=== PATIENT | male | born 1955 | race Caucasian/White ===

== ENCOUNTER → 2017-10-27 16:33 | Outpatient (CLI) | payer OTHER, SELFPAY ==
--- NOTE | 2017-10-27 | DI.RAD.S_ITS ---
PROCEDURE: XR LUMBAR SPINE 2-3V INDICATIONS: BACK PAIN TECHNIQUE: 3 views of the lumbar spine were acquired. COMPARISON: [facility], , CHEST 2 VIEW, 06/22/2007, 16:56. FINDINGS: Bones: 5 [id number] vertebrae are present. There is levoconvex scoliosis of the lumbar spine with apex at L3. There is multilevel trace retrolisthesis throughout the lumbar spine most severe at L1 on L2. Moderate to severe disc space narrowing is present throughout the lumbar spine most severe at L1-2 and L2-3. Prominent foraminal narrowing is present throughout the lumbar spine most severe at L1-L2, L3-L4, L4-L5 L5-S1. Multilevel anterior osteophytes are also present. Chronic appearing wedge deformity is present at T11. No vertebral body compression fractures. No suspicious bony lesions. Soft tissues: Overlying bowel gas pattern is normal. No suspicious soft tissue calcifications. IMPRESSION: Multilevel degenerative changes as above. Dictated by: Kelli Plata M.D. on 10/28/2017 at 14:14 Approved by: Kelli Plata M.D. on 10/28/2017 at 14:16
--- NOTE | 2017-10-27 | DI.RAD.S_ITS ---
PROCEDURE: XR KNEE RT 3V INDICATIONS: KNEE PAIN TECHNIQUE: 3 views of the knee were acquired. COMPARISON: [facility], CR, XR KNEE LT 3V, 10/27/2017, 16:26. FINDINGS: Bones: No fractures or dislocations. No suspicious bony lesions. There is mild medial patellofemoral compartment narrowing. Periarticular and peripatellar osteophytes are present. Soft tissues: Moderate joint effusion. No suspicious soft tissue calcifications. IMPRESSION: Moderate effusion with degenerative changes as above. Dictated by: Kelli Plata M.D. on 10/28/2017 at 14:13 Approved by: Kelli Plata M.D. on 10/28/2017 at 14:14
--- NOTE | 2017-10-27 | DI.RAD.S_ITS ---
PROCEDURE: XR KNEE LT 3V INDICATIONS: KNEE PAIN TECHNIQUE: 3 views of the knee were acquired. COMPARISON: None. FINDINGS: Bones: No fractures or dislocations. No suspicious bony lesions. Mild medial and patellofemoral compartment narrowing. Minimal periarticular and peripatellar osteophytes are present. Minimal patellar subluxation is present. Soft tissues: Moderate joint effusion. No suspicious soft tissue calcifications. IMPRESSION: Moderate effusion with degenerative changes as above. Dictated by: Kelli Plata M.D. on 10/28/2017 at 13:49 Approved by: Kelli Plata M.D. on 10/28/2017 at 14:13
== END ==
PROVIDERS: PCP Internal Medicine; Visit Provider Physician Assistant
DX: M17.0 Bilateral primary osteoarthritis of knee (principal); M51.37 Other intervertebral disc degeneration, lumbosacral region; M51.36 Other intervertebral disc degeneration, lumbar region; M25.462 Effusion, left knee; M25.461 Effusion, right knee; M25.562 Pain in left knee; M25.561 Pain in right knee; M54.5 Low back pain
CPT/HCPCS: 72100; 73562

== ENCOUNTER → 2018-02-28 17:20 | Outpatient (CLI) | payer OTHER, SELFPAY ==
--- NOTE | 2018-02-28 17:22 | DI.MRI.S_ITS ---
PROCEDURE: MR LUMBAR SPINE WO CON INDICATIONS: LOW BACK PAIN TECHNIQUE: Noncontrast sagittal T1 spin echo and T2 fast echo, sagittal STIR, axial T1 and T2 fast spin echo through the lumbar spine. In cases with scoliosis, additional coronal T2 fast spin echo may be performed. COMPARISON: None. FINDINGS: Image quality: Excellent. Alignment and Curvature: There is mild levoscoliosis centered at L3-4 level. Minimal retrolisthesis are noted at L1 to an L2-3 levels. Minimal anterolisthesis at L4-5 level is also seen. Bone Marrow: Marrow is of normal overall signal. No acute vertebral body compression fractures. Spinal Cord: Conus medullaris terminates at the T12-L1 level. Visualized cord demonstrates normal signal and size. Paraspinous Soft Tissues: No paravertebral masses. L1-L2: There is diffuse disc bulge and bilateral facet arthrosis with mild to moderate central canal stenosis and mild bilateral neuroforaminal narrowing. L2-L3: Diffuse disc bulge, bilateral facet arthrosis and hypertrophy of ligamentum flavum is seen with moderate central canal stenosis and bilateral neural foramina narrowing. L3-L4: Broad-based disc bulge and bilateral facet arthrosis is seen with hypertrophy of ligamenta flava. Moderate central canal stenosis and right worse than left bilateral neuroforaminal narrowing is seen. Bulging disc likely contacting exiting right L3 nerve root. L4-L5: Broad-based disc bulge and bilateral facet arthrosis with hypertrophy of ligamentum flavum is seen causing severe central canal stenosis and right worse than left bilateral neural foramina narrowing. Bulging disc likely contacting right L4 and L5 nerve roots and left L5 nerve root. L5-S1: Diffuse disc bulge and bilateral facet arthrosis is seen with mild central canal stenosis and bilateral neural foramina narrowing. Bulging disc likely contacting bilateral exiting L5 nerve roots. IMPRESSION: 1. Degenerative disc bulge and bilateral facet arthrosis throughout lumbar spine causing moderate to severe central canal stenosis and bilateral neural foramina narrowing most prominent at L4-5 level as above. 2. Mild degenerative spondylolisthesis at L1-2, L2-3 and L4-5 levels. Mild levoscoliosis centered at L3-4 level. No acute compression fracture. No marrow edema. Dictated by: Richy Tirado M.D. on 03/01/2018 at 8:35 Approved by: Richy Tirado M.D. on 03/01/2018 at 8:40
== END ==
PROVIDERS: Family Provider Physician Assistant; PCP Physician Assistant; Visit Provider Orthopaedic Surgery
DX: M54.5 Low back pain (principal); M51.36 Other intervertebral disc degeneration, lumbar region; M51.37 Other intervertebral disc degeneration, lumbosacral region; M47.816 Spondylosis without myelopathy or radiculopathy, lumbar region; M47.817 Spondylosis without myelopathy or radiculopathy, lumbosacral region; M48.061 Spinal stenosis, lumbar region without neurogenic claudication; M48.07 Spinal stenosis, lumbosacral region; M43.16 Spondylolisthesis, lumbar region; M41.86 Other forms of scoliosis, lumbar region
CPT/HCPCS: 72148

== ENCOUNTER → 2018-05-23 16:55 | Outpatient (CLI) | payer OTHER, SELFPAY ==
--- NOTE | 2018-05-23 17:02 | DI.MRI.S_ITS ---
PROCEDURE: MR CERVICAL SPINE WO CON INDICATIONS: NECK PAIN TECHNIQUE: Noncontrast sagittal T1 spin echo and T2 fast spin echo, sagittal STIR, foraminal oblique sagittal T2 fast spin echo, and axial gradient echo or T2 fast spin echo through the cervical spine. COMPARISON: None. FINDINGS: Image quality: Diagnostic, with note made of motion artifact. Alignment and Curvature: There is normal bony alignment. Bone Marrow: Marrow demonstrates normal overall signal. Spinal Cord: Visualized spinal cord has normal size and signal. No cerebellar tonsillar herniation. Paraspinous Soft Tissues: No paravertebral masses. Prevertebral soft tissues are normal in thickness. C2-C3: No significant abnormality is seen. C3-C4: The disc height is well-preserved. Loss of disc signal is seen at this level. A mild degree of generalized disc osteophyte complex is seen. There is mild right-sided and no left-sided facet hypertrophy seen. There is moderate to severe right-sided and mild to moderate left-sided neural foraminal narrowing seen. Mild central canal narrowing is seen, with minimal mass effect upon the ventral spinal cord. C4-C5: The disc height is well-preserved. Loss of disc signal is seen at this level. Mild disc osteophyte complex is seen, with a central disc osteophyte protrusion, as on series 4 image 23. Mild to moderate facet hypertrophy is seen. There is moderate bilateral neural foraminal narrowing seen, left greater than right. At least moderate central canal narrowing is seen, with associated mass effect upon the ventral spinal cord. C5-C6: Moderate loss of disc height is seen. Loss of disc signal is seen. Moderate generalized disc osteophyte complex is seen. Uncovertebral joint hypertrophy is seen at this level. Mild to moderate facet hypertrophy is seen. There is moderate to severe bilateral neural foraminal narrowing seen. Moderate to severe central canal narrowing is seen, with associated mass effect upon the ventral spinal cord, as on series 4 image 27. C6-C7: The disc height is well-preserved. Loss of disc signal is seen at this level. Moderate disc osteophyte complex is seen, which is eccentric to the right, with a central/right disc osteophyte protrusion. Moderate bilateral neural foraminal narrowing is seen. Mild to moderate central canal narrowing is seen. C7-T1: The disc height is well-preserved. Loss of disc signal is seen at this level. Mild to moderate disc osteophyte complex is seen. [id number] bilateral neural foraminal narrowing is seen. No significant central canal narrowing is seen. IMPRESSION: Cervical spine degenerative changes are seen, which are most prominent at the C5-C6 level. Dictated by: Karan Gonzalez M.D. on 05/23/2018 at 17:07 Approved by: Karan Gonzalez M.D. on 05/23/2018 at 17:11
== END ==
PROVIDERS: Family Provider Physician Assistant; PCP Physician Assistant; Visit Provider Neurological Surgery
DX: M54.2 Cervicalgia (principal); M47.812 Spondylosis without myelopathy or radiculopathy, cervical region
CPT/HCPCS: 72141

== ENCOUNTER → 2020-04-04 09:12 | Outpatient (CLI) | payer OTHER, SELFPAY ==
[2020-04-04 12:20] LABS: COVID19 -Nasal RAPID Negative (Negative)
== END ==
PROVIDERS: Family Provider Physician Assistant; PCP Physician Assistant; Visit Provider Specialist
DX: Z01.812 Encounter for preprocedural laboratory examination (principal); Z20.828 Contact with and (suspected) exposure to other viral communicable diseases
CPT/HCPCS: 87635; C9803

== ENCOUNTER 2020-04-07 06:08 | Day surgery (SDC) | payer OTHER, SELFPAY ==
[2020-04-03 10:48] VITALS: BMI 25.0
[2020-04-07] VITALS (8 sets, daily range): BP systolic 107–143; BP diastolic 55–81; PULSE 42–51; RESP 9–16; TEMP 36.3–36.9; O2SAT 96–99; BMI 25.0
[2020-04-07] MEDS: LACTATED RINGERS 1,000 ML 42 ML IV (07:26)
--- NOTE | 2020-04-07 07:34 | PM.PREOP ---
Pre-operative Note COVID-19 COVID-19 status: Negative Result date/Date tested (Pos, Neg/Pending): 04/04/20 Interval Note History & Physical reviewed/Exam performed by Physician: Yes Changes to H&P: No
[2020-04-07] MEDS: CEFAZOLIN 2 GM/100 ML FROZ.PIGGY IV (07:43)
--- NOTE | 2020-04-07 08:14 | SUR.OPER ---
Supine on padded OR bed, head on pillow, arms secured on padded arm boards at <90 degrees abduction, legs uncrossed, safety belt at thigh, tape over blanket over lower legs.
[2020-04-07] MEDS: BUPIVACAINE 0.5% (PF) VIAL 30 ML INJ (08:21)
--- NOTE | 2020-04-07 10:20 | PM.OP.1 ---
Operative Date/Time/Diagnoses Date of procedure: 04/07/20 Time of procedure: 09:39 Pre-op diagnosis: Left inguinal hernia reducible. Post-op diagnosis: same Procedure & Clinicians Procedure: Repair of the hernia with plug and patch technique Same procedure as scheduled: Yes Indications: Symptomatic left inguinal hernia Surgeon: Jose Juan Kent Click Yes if Unassisted: Yes Anesthesia Type: General Operative Notes Findings: Discrete direct hernia and lipoma of the cord. Closure Type: primary Specimen(s): none sent Prosthetic devices, grafts, tissues, transplants, or devices: Mesh small plug and patch Estimated Blood Loss (mL): 5 Procedure in detail: The patient was placed supine on the operating room table and underwent general LMA anesthesia. He was prepped and draped in the usual fashion. A transverse incision was made overlying the left internal ring and carried down to the level of the external oblique. The external oblique was opened parallel with its fibers through the external ring. The cord structures were elevated. The cremaster was opened proximally and search made for an indirect sac. No sac was found but there was a significant lipoma of the cord that was removed.. A small plug was placed in the defect created by this lipoma and tacked into place with interrupted Ethibond suture. The floor was examined and was found to have a discrete hole in the center of the floor. This was closed with interrupted Ethibond sutures suturing the medial to transversalis to the lateral ileopubic tract.. A patch was placed across the floor and tacked at the pubic tubercle, the posterior lamella of the anterior rectus sheath, the ilioinguinal ligament, and superior lateral to the cord. The opening was modified as necessary to prevent tight constriction of the cord. Sutures of 0 Ethibond were used to secure the mesh. The external oblique was closed with a running 3 0 Vicryl. The subcu was closed with interrupted 3 0 Vicryl. The skin was closed with a running 4 0 Vicryl subcuticular stitch and Steri-Strips. Dressing was applied, the patient was awakened, and the patient was taken to the recovery area in good condition. Complications: none Post-operative Condition: stable Disposition: PACU
== END 2020-04-07 10:31 | disposition home or self-care (01) ==
PROVIDERS: Family Provider Physician Assistant; PCP Physician Assistant; Referring Provider Physician Assistant; Visit Provider Specialist
PROC: (CPT 49505; principal; 2020-04-07 07:45)
DX: K40.90 Unilateral inguinal hernia, without obstruction or gangrene, not specified as recurrent (principal); D17.6 Benign lipomatous neoplasm of spermatic cord
CPT/HCPCS: 49505; C1781; J0690; J1100; J1885; J2405; J2704; J3010

== ENCOUNTER → 2020-12-02 08:00 | Outpatient (CLI) | payer OTHER, SELFPAY ==
--- NOTE | 2020-12-02 | DI.RAD.S_ITS ---
PROCEDURE: FL BARIUM SWALLOW W SPEECH INDICATIONS: Dysphagia, unspecified COMPARISON: None. TECHNIQUE: Examination was conducted in conjunction with speech pathology per standard protocol. In the lateral projection, filming was performed of the patient swallowing. AP projection filming may also be performed with patient swallowing. COMPARISON: FINDINGS: Function: The oral preparatory phase appears normal, with proper containment. The subsequent oral propulsive phase and upper pharyngeal phase show reduced motility with resultant retention of nectar thick and honey thick fluids. The esophageal phase of swallowing appears normal with all proffered substances. There was brief upper laryngeal penetration with no aspiration. No pathologic vallecular pooling. Morphology: No cricopharyngeal bar is identified. No cervical esophageal webs. No Zenker's diverticulum. No strictures. IMPRESSION: Reduced motility at the junction of the oral and upper pharyngeal areas, allowing transient anterior penetration into the upper margin of the larynx, without extension more inferiorly and also without aspiration. Normal esophageal function. Please also refer to the dedicated speech therapy swallowing evaluation report which will be independently generated. Dictated by: Ashwin Caicedo M.D. on 12/02/2020 at 10:03 Approved by: Ashwin Caicedo M.D. on 12/02/2020 at 10:06
--- NOTE | 2020-12-02 17:48 | ST.SWALLOW ---
Visit Care Team Role Provider Type Paty Gonsalez PA-C Family Provider Non-Staff Specialty: Internal Medicine [address]: [address] [place] [address], [id number] Email: [email or web address] Theresa Luna PA-C Attending Provider [employer] Primary Care Provider Referring Provider Specialty: Medical Address: [facility] [address] [place], [address] Email: [email or web address] Modified Barium Swallow Study [employer] Modified Barium Swallow Study Start: 12/03/20 08:39 Freq: Status: Active Protocol: Document 12/02/20 08:39 MEI (Rec: 12/03/20 09:16 MEI [id number]) Modified Barium Swallow Study Total Time Visit Start Time 08:30 Visit Stop Time 09:00 Total Visit Minutes 30 Referral Referring Physician Theresa Luna P.A-C Reason for Referral Dysphagia Setting Setting Outpatient Care Patient Information Identification Type Name,ID Card Patient History The pt is a 65-yr-old male with c/o coughing with solids and liquids, often with need to completely expel or reswallow after clearing from airway. He has observed no consistency with problematic solid textures and notices increased difficulty with liquids when he tips his head upward while drinking. PMHx is significant for ACDF surgery 2 years ago with placement of cage at C4-C7. Pt reported mild dysphagia symptoms immediately following that surgery, which resolved. Current symptoms began ~1 yr ago and have been worsening progressively. Subjective Observations The pt arrived on time and provided case history supplemental to medical records. Patient Positioning Position View Lat-A/P Imaging Lateral View Textures Administered Trials Presented Thin Liquid via Spoon,Thin Liquid via Cup,[place] Liquid via Spoon,[place] Liquid via Cup,Honey Liquid via Straw, Dysphagia Blenderized Textures ,Regular Textures Oral Phase Source: MBSIMP (TM) (C) Bolus Specific Scoring Grid Lip Closure No Impairment (WNL) Tongue Control During Bolus Hold No Impairment (WNL) Bolus Prep/Mastication No Impairment (WNL) Bolus Transport/Lingual Motion Mild Impairment A/P Lingual Propulsion Delay Yes: with barium tablet only, requiring 3 attempts Oral Residue WFL Residue Clearing No Impairment (WNL) Nasal Regurgitation No Additional Oral Phase Observations Oral Peripheral Exam: Mildly decreased left-side facial muscle tone observed at rest, upon lip retraction, and when alternating air laterally between cheeks. Mild lingual deviation to right side observed upon tongue protrusion. Pt denied any neurologic disease or events including stroke and TIA. Soft palate elevation was strong and symmetrical. Oral and facial muscle strength and ROM were WNL. Pt has natural dentition with one lower right molar missing; otherwise in adequate condition. He denied any difficulty with mastication. Oral prep and swallow phases were WNL with exception of lingual rocking x1 during A/P transit of first bolus of thin liquid (tsp) and with barium tablet, which required 3 attempts with thin liquid to clear the oral cavity. Pharyngeal Phase Source: MBSIMP (TM) (C) Bolus Specific Scoring Grid Delayed Initiation of Pharyngeal Swallow No Soft Palate Elevation No Impairment (WNL) Tongue Base Strength/Range of Motion Mild Impairment Residue Along the Tongue Base Yes: minimal Clearance of Residue Along Tongue Base WFL Laryngeal Elevation WFL Anterior Hyoid Movement WFL Epiglottic Range of Motion Mild Impairment Vallecular Residue Yes: significant with solids; minimal with liquids Clearance of Vallecular Residue Moderate Impairment Laryngeal Vestibular Closure Mild Impairment Pharyngeal Stripping Wave Mild Impairment Pharyngeal Contraction Mild Impairment Posterior Pharyngeal Wall Residue No Upper Esophageal Sphincter Opening Mild Impairment Residue in the Pyriform Sinuses Yes: with solids only Clearance of Residue in the Pyriform Moderate Impairment Sinuses Esophageal Clearance Upright Position No Impairment (WNL) Pharyngoesophageal Backflow Observed No Additional Pharyngeal Phase Observations Hyolaryngeal elevation and anterior excursion was adequate in ROM but mildly slowed, which may contribute to incomplete closure of the laryngeal vestibule, allowing for frequent flash penetration (PAS 2) with thin and nectar- thick liquids. No aspiration was observed. Epiglottic inversion was incomplete, making contact with the pharyngeal wall at just past horizontal position. This, in addition to mildly reduced strength and ROM of tongue base and pharyngeal constrictors, resulted in significant collection of residue at vallecula with solids which required multiple swallows to clear. Partial distension and partial duration of UES opening restricted bolus flow, particularly with solids, and resulted in moderate residue at pyriform sinuses, again requiring multiple swallows to clear. A/P View Textures Administered Trials Presented [place] Liquid via Cup,Barium Tablet A/P View Observations Pharyngeal Contraction Mild Impairment Esophageal Function No Impairment (WNL) Esophageal Clearance Upright Position No Impairment (WNL) Additional Observations Mild left side unilateral bulging noted during phayrngeal contraction in A/P view, which may contribute to pyriform sinus residue. Clinical Impressions Dysphagia Type Mild-Moderate Pharyngeal Dysphagia Findings The pt presents with mild- moderate pharyngeal dysphagia secondary to muscular weakness and likely contributed by ACDF surgery and/or presence of cervical cage. Impairments include reduced strength of hyolaryngeal displacement during swallow contributing to incomplete epiglottic inversion and airway closure and reduced extension and duration of UES opening. This resulted in frequent flash penetration of thin and nectar -thick liquids into the laryngeal vestibule, as well pharyngeal residue at vallecula and pyriform sinuses , greater with solids than liquids. Reduced pharyngeal constriction further contributes to pharyngeal residue. No aspiration was observed during the study. No cough response was triggered with flash penetration. Chin tuck was not effective in protecting the airway. Rehabilitation Potential Good Patient Appropriate for Therapy Yes Recommendations Diet Liquids Order Thin Diet Order Mechanical Soft Medication Recommendation As Tolerated Comments Pt may benefit from use of carrier with medication Additional Dietary Needs Single Sips Aspiration Precautions Recommended Precautions Upright at 90 Degrees,Small Bites/Sips,Effortful Swallow, Double Swallow Treatment Plan Therapy Recommendations Outpatient Speech Therapy Compensatory Strategies Recommendations Sitting Upright (90 deg), Double Swallow,Small Bites and Sips Short Term Goals 1. The pt will complete exercises to improve strength, coordination and ROM of swallow musculature to reduce risk of aspiration. 2. The pt will follow safe swallow strategies independently to reduce risk of aspiration. Mcfp Goals 1. The pt will tolerate regular textures and thin liquids without laryngeal penetration or tracheal aspiration, as measured by clinical trials and/or repeat MBS. Placement Recommendation After Discharge Home,Outpatient Therapy
== END ==
PROVIDERS: Family Provider Physician Assistant; PCP Physician Assistant; Referring Provider Physician Assistant; Visit Provider Physician Assistant
DX: R13.10 Dysphagia, unspecified (principal); M43.22 Fusion of spine, cervical region
CPT/HCPCS: 74230; 92611

== ENCOUNTER 2022-06-01 10:22 | Day surgery (SDC) | payer OTHER, SELFPAY ==
[2022-06-01 10:56] VITALS: BP 149/86; PULSE 53; RESP 16; TEMP 36.3; O2SAT 100; BMI 25.7
[2022-06-01] MEDS: LACTATED RINGERS 1,000 ML 200 ML IV (11:06)
--- NOTE | 2022-06-01 12:13 | P.HP_ITS ---
History of Present Illness History of Present Illness Date Patient Seen: 06/01/22 Time Patient Seen: 12:14 Chief complaint: Colonoscopy Narrative: The patient presents for colorectal screening. Previously normal colonoscopy 10 years ago.. No personal or family history of colon cancer. On further history denies any recent gastrointestinal symptoms with the exception of mild chronic constipation. No nausea, vomiting, abdominal pain, loss of appetite, unexplain ed weight loss, change in bowel habits, or blood per rectum. Patient History Medical History Hx of testicular cancer Surgical History History of surgery History of vasectomy Hx of neck surgery (10/21/18) Family & Social History Family History Mother Diabetes mellitus Social History: household members spouse Tobacco & Substance use: Smoking Status Never smoker alcohol intake never Substance Use Type does not use Meds Home Medications and Allergies Home Medications Medication Instructions Recorded Confirmed Type sodium,potassium,mag sulfates 17.5 See Rx Instructions PO .COMPLEX 05/18/22 06/01/22 Rx gram-3.13 gram-1.6 gram oral soln #354 mL (Suprep Bowel Prep Kit) docusate sodium 100 mg capsule 100 mg PO BID 06/01/22 06/01/22 History (Colace) Allergies Allergy/AdvReac Type Severity Reaction Status Date / Time No Known Drug Allergies Allergy Verified 06/01/22 11:04 Exam Vital Signs (past 8 hours): - 06/01/22 10:56 Temperature 97.3 F L Pulse Rate 53 L Respiratory Rate 16 Blood Pressure 149/86 H Pulse Oximetry 100 Oxygen Delivery Method Room Air Oxygen Delivery Method Room Air Narrative Exam Narrative: General adult man alert oriented no acute distress Assessment & Plan Assessment & Plan narrative: The patient requires colorectal screening and colonoscopy is recommended. Technical details were discussed. Risks, benefits, alternatives explained. Risks including but not limited to myocardial infarction, aspiration, bleeding, pain, missed lesion, incomplete examination, need for further radiographic studies, colonic perforation, and need for major abdominal surgery were discussed. All questions were answered to their satisfaction, and they are in agreement with this plan. Time Spent With Patient Critical Care time: I spent a total of [] minutes of critical care time on this patient's care today; this time is exclusive of procedural time.
--- NOTE | 2022-06-01 12:17 | P.OP.COLON_ITS ---
Operative Date/Time/Diagnoses Date of procedure: 06/01/22 Time of procedure: 12:17 Pre-op diagnosis: Colorectal screening Procedure & Clinicians Study performed: Colonoscopy Same procedure as scheduled: Yes Indications: Colorectal screening Surgeon: Jack Deal Procedure Notes Procedure in detail: The history and physical was performed/updated and the patient is ASA class is 2. The procedure was discussed in detail with the patient. Potential risks complications including infection, bleeding, missed diagnosis, perforation, need for surgery, and were explained. Their questions were answered and informed consent was obtained. Patient was brought to the procedure room and placed standard monitoring equipment. The patient's vital signs were monitored continuously throughout the entire procedure. Prior to starting time-out was performed. The patient was placed in the left lateral recumbent position. Procedural sedation was administered by anesthesia. Examination began with a thorough inspection of the perianal area there was no evidence of fissures, fistulae, external hemorrhoids or cutaneous malignancy. The colonoscopy scope was then placed into the anal canal and was advanced to the cecum, which was identified by the ileocecal valv e, the appendiceal orifice and the confluence of the taenia. The scope was then slowly withdrawn examining colon thoroughly in all directions, irrigating it of any residual stool. No colonic polyps, masses or inflammation were observed. The patient tolerated the procedure well. They will be discharged once criteria are met. The prep was of good/excellent quality. The withdrawl time was 6 min utes. Specimen(s): none sent Impression: Normal colonoscopy Post-procedure Recommendations: Colonoscopy in 10 years and High fiber diet Disposition: same day surgery
[2022-06-01 12:44] VITALS: BP 89/56; PULSE 50; RESP 11; TEMP 36.1; O2SAT 99
[2022-06-01 12:49] VITALS: BP 91/59; PULSE 47; RESP 11; O2SAT 99
[2022-06-01 12:54] VITALS: BP 102/66; PULSE 55; RESP 16; O2SAT 98
--- NOTE | 2022-06-01 12:54 | SUR.PHASEI ---
Patient sitting up drinking juice without difficulty; patient denies pain or nausea. VSS. Abdomen remains soft and non-distended.
[2022-06-01 12:56] VITALS: BP 114/68; PULSE 55; RESP 16; O2SAT 98
== END 2022-06-01 13:06 | disposition home or self-care (01) ==
PROVIDERS: Family Provider Physician Assistant; PCP Physician Assistant; Referring Provider Surgery; Visit Provider Surgery
PROC: 0DJD8ZZ Inspection of Lower Intestinal Tract, Via Natural or Artificial Opening Endoscopic (ICD-10-PCS; CPT 45378; principal; 2022-06-01 11:30)
DX: Z12.11 Encounter for screening for malignant neoplasm of colon (principal)
CPT/HCPCS: G0121; 45378; J2704

== ENCOUNTER → 2023-04-13 07:55 | Outpatient (CLI) | payer OTHER, SELFPAY ==
--- NOTE | 2023-04-13 | DI.RAD.S_ITS ---
PROCEDURE: XR HIP W PEL IF DONE LT 2V INDICATIONS: left hip pain TECHNIQUE: AP pelvis with lateral view(s) of the left hip(s). COMPARISON: None. FINDINGS: Bones: No fractures or dislocations. Moderate to severe left and mild right degenerative changes of the hips. There is joint space narrowing, subchondral sclerosis and marginal spurring. Degenerative changes of the visualized lower lumbar spine and pubic symphysis. Pelvic ring appears intact. No suspicious bony lesions. Soft tissues: The visualized bowel gas pattern is normal. No suspicious soft tissue calcifications. IMPRESSION: Asymmetric hip joint degeneration, moderate to severe on the left and mild on the right. No acute osseous abnormalities. Dictated by: Reynaldo Robertson M.D. on 04/13/2023 at 10:35 Approved by: Reynaldo Robertson M.D. on 04/13/2023 at 10:36
== END ==
PROVIDERS: Family Provider Physician Assistant; PCP Physician Assistant; Referring Provider Physician Assistant; Visit Provider Physician Assistant
DX: M16.0 Bilateral primary osteoarthritis of hip (principal); M25.552 Pain in left hip; G89.29 Other chronic pain
CPT/HCPCS: 73502

== ENCOUNTER 2023-09-09 06:00 | Day surgery (SDC) | payer MEDICARE, SELFPAY ==
[2023-08-24 07:41] VITALS: BMI 25.1
[2023-09-09] VITALS (11 sets, daily range): BP systolic 94–156; BP diastolic 51–83; PULSE 51–71; RESP 16–18; TEMP 36.1–36.8; O2SAT 98–100; BMI 25.1
--- NOTE | 2023-09-09 | DI.RAD.S_ITS ---
PROCEDURE: XR HIP W PEL IF DONE LT 2V INDICATIONS: TOTAL TECHNIQUE: Intraoperative low resolution fluoroscopic spot films COMPARISON: [facility], CR, XR HIP W PEL IF DONE LT 2V, 04/13/2023, 8:01. FINDINGS: Low resolution intraoperative fluoroscopic spot films show left total hip prosthesis in appropriate position IMPRESSION: Fluoroscopic guidance Approved by: Bryson Cee M.D. on 09/09/2023 at 17:44
--- NOTE | 2023-09-09 06:29 | DI.RAD.S_ITS ---
PROCEDURE: XR HIP W PEL IF DONE LT 2V INDICATIONS: DEREK TECHNIQUE: 2 view(s) of the hip acquired. COMPARISON: [facility], CR, XR HIP W PEL IF DONE LT 2V, 04/13/2023, 8:01. FINDINGS: Bones: Patient is status post total left hip arthroplasty, with hardware components in expected positions. The hip joint appears congruent. The visualized bony structures appear intact. Soft tissues: Overlying postoperative changes are noted. No suspicious soft tissue densities. IMPRESSION: Expected immediate postoperative appearance, status post total left hip arthroplasty. Dictated by: Robby Manzano M.D. on 09/09/2023 at 11:15 Approved by: Robby Manzano M.D. on 09/09/2023 at 11:15
[2023-09-09] MEDS: MELOXICAM 7.5 MG TABLET PO (06:56)
[2023-09-09] MEDS: ACETAMINOPHEN 325 MG TABLET 975 MG PO (06:56)
[2023-09-09] MEDS: LACTATED RINGERS 1,000 ML 42 ML IV ×3 (06:56→09:41)
--- NOTE | 2023-09-09 07:42 | PM.PREOP ---
Pre-operative Note Interval Note History & Physical reviewed/Exam performed by Physician: Yes Changes to H&P: No
--- NOTE | 2023-09-09 07:52 | SUR.OPER ---
Supine on padded [place] table with bilateral legs secured in padded positioning boots and suspended in positioning spars, operative leg in traction per surgeon. Head on one pillow. Arms secured on padded armboards <90 degrees abduction. Padded perineal post in place per surgeon.
[2023-09-09] MEDS: CEFAZOLIN 2 GM/100 ML PREMIX 100 ML IV ×2 (08:05→15:27)
[2023-09-09] MEDS: TRANEXAMIC ACID 1,000 MG VIAL 1000 MG INJ (08:10)
[2023-09-09] MEDS: ROPIVACAINE/EPI/CLONIDINE/KET 50 ML SYRINGE INJ (08:20)
--- NOTE | 2023-09-09 09:51 | P.OP_ITS ---
Operative Date/Time/Diagnoses Date of procedure: 09/09/23 Pre-op diagnosis: Left hip osteoarthritis Post-op diagnosis: same Procedure & Clinicians Procedure: Left total hip arthroplasty through anterior approach with modular dual mobility articulation Same procedure as scheduled: Yes Surgeon: Bryson Spears Spring Inspector: Jazmyne Mckeon Anesthesia Type: Spinal, Sedation and Local Operative Notes Estimated Blood Loss (mL): 500 Procedure in detail: Left Uncemented Direct Anterior Total Hip Arthroplasty: Implants: Left Depuy Total Hip Arthroplasty: * Depuy Hammond Gription size 62 cup?with Hammond modular dual mobility liner * Depuy Actis femoral stem size 12 high offset? * 28 mm +5 ceramic femoral head? * Altrx dual mobility liner Procedure Summary: This 68-year-old male patient was noteworthy for having very large templated sizes preoperatively as well as having a significant lumbar scoliotic degenerative deformity. His scoliotic deformity has not undergone a posterior spinal fusion but is obvious enough that it can be seen from a distance while he has wearing a shirt. Because of his spinal deformity I felt that dual mobility would be appropriate in his case. I initially planned to use a mono block dual mobility cup. To accommodate for his pelvic tilt in a standing position I adjusted the fluoroscopy unit significantly more into an outlet oriented position than typical during cup placement. I reamed up to a size 61 Reamer which still had some space in the acetabular socket. I did not feel that cup placement without screws would provide reliable acetabular fixation, and this mono block system has a maximum cup size of 61 mm. I felt that if I could go up to 63 mm I likely would have been able to achieve a robust Press-Fit. I therefore utilized a modular dual mobility articulation with a 62 mm cup and placed screws through the cup before the liner. While this does have a theoretical risk of potential metallosis between the cup and the modular liner, I felt that this was a smaller potential risk than dislocation given his spinal condition or acetabular loosening given the need for a larger cup to completely obtain a circumferential Press-Fit with the stiff Bimentum monoblock cup. On the acetabular side, similar to the femoral side, his templated sizes were very large but were still smaller than the fit I was able to achieve. I had templated for a size 10 stem and ended up with a size 12 stem which is the largest stem in this system. I initially trialed with an 11 stem but found that it had some toggle after my initial trialing so I sank it further, eventually upsized to a size 12, and upsized from the +1.5 head I initially trialed with to a +5 head. Given the dual mobility head, reduction was quite challenging. I was unable to dislocate the hip with maximum external rotation. Procedure in Detail: This patient was seen preoperatively and evaluated for hip pain which was refractory to numerous nonoperative treatment modalities. Their hip pain correlated with radiographic changes demonstrating significant degeneration in the hip joint. The risks and benefits of continued nonoperative management versus operative management were discussed at length and all of the patient?s questions were answered. Additional educational materials providing further details beyond our discussion in clinic were provided via a publicly available patient education video which included the incidence of medical complications associated with total hip arthroplasty, reasons for revision following total hip arthroplasty, and patient satisfaction rates following total hip arthroplasty. That video can be accessed at [email or web address] . With this understanding of the risks inherent to the procedure, the patient elected to move forward with operative management. Following preoperative optimization, the patient was scheduled for surgery. The patient was met in the preoperative holding area the day of the procedure and all questions were answered. The patient?s nares were swabbed with betadine in order to decolonize them from MRSA. Informed consent was signed and the operative limb was marked with indelible ink.? The patient was brought back to the operating room where anesthesia was induced. The patient was transferred to the [place] table and all bony prominences were padded. The operative site was prepped and draped in the usual sterile fashion. Prior to incision, tranexamic acid and cefazolin were administered. Operative templating images were displayed demonstrating the anticipated implant sizes and correct operative extremity. A timeout procedure was performed verifying the patient?s identity, medical comorbidities, allergies, relevant medications, anesthesia type and the surgical plan. All present were in agreement. The assistance of a physician bacteriology research assistant was required for positioning, room setup, soft tissue retraction and wound closure. Without this assistance, the procedure would have been significantly more challenging and time consuming.?? A direct anterior approach to the hip was utilized. This was performed with a longitudinal incision through a Heuter interval. The incision was planned 2 cm distal and 2 cm lateral to the ASIS extending towards the lateral patella, in line with the muscle body of the TFL. Following incision, the subcutaneous tissue was dissected while taking care to avoid injury to the lateral femoral cutaneous nerve. The fascia overlying the TFL was identified by dissecting off the overlying fat and identifying perforating vessels to the TFL. The TFL fascia was incised and dissected away from the medial border of the TFL. A cobra retractor was placed over the superior femoral neck between the abductors and the hip capsule and used to reflect the TFL laterally. A Clay self-retainer was then placed in the distal aspect of the wound between the TFL and the rectus femoris. This was tensioned to open up the direct anterior interval and the lateral circumflex vessels were identified and coagulated using electrocautery. The floor of the TFL fascia was incised, exposing the pericapsular fat overlying the hip capsule. A second cobra retractor was placed on the inferior femoral neck. A double-bent soft tissue retractor was placed on the anterior wall of the acetabulum and used to tension the reflected head of rectus femoris, which was then released in order to limit soft tissue tension. A capsulotomy was made in the midline of the anterior hip capsule in line with the femoral neck ending at the vastus tubercle. The double-bent retractor was removed in order to limit the amount of time that a soft tissue retractor remained on the anterior wall and protect the femoral nerve. Tag stitches were placed in the superior and inferior leaflets of the hip capsule. An Bruno soft tissue retractor was introduced over the tag stitches and tensioned in the interval between the rectus femoris and the TFL in order to retract and protect those muscles. The cobra retractors were replaced intracapsularly, with one over the superior neck in the pocket created by the base of the greater trochanter and the other on the femoral head. The capsulotomy was extended laterally to the base of the greater trochanter and medially to the lesser trochanter. This required externally rotating the hip. Once the lesser trochanter had been identified, a neck cut was planned according to measurements from preoperative templating. A ruler was cut at the length measured between the superior aspect of the lesser trochanter and the collar of the prosthesis. This line was extended towards the inferior aspect of the lateral cobra retractor to plan a cut which would leave minimal residual femoral neck laterally. The neck was cut at 60 degrees of external rotation along that line. A second cut was performed to remove a large napkin ring and facilitate head extraction. The napkin ring cut and femoral head were removed.?? A broad anterior wall retractor was placed between the labrum and the anterior capsule so that the anterior capsule would prevent capturing and pinching the femoral nerve anteriorly. An additional retractor was placed on the posterior wall. External rotation and traction were applied through the [place] table so that the cut surface of the femoral neck would not restrict access to the acetabulum. The labrum was excised sharply and the pulvinar was excised with electrocautery to limit bleeding from branches of the obturator artery. Acetabular reamers were selected based on preoperative templating and measurements of the excised femoral head. These were introduced into the acetabulum. Fluoroscopy was utilized to replicate a standing AP pelvis radiograph by centering over the pelvis, rotating until there was appropriate symmetry between the obturator foramen, and introducing caudal tilt to match the position of the pubic symphysis relative to the sacrococcygeal junction according to the patient?s anatomy. Fluoroscopy was utilized to ensure appropriate reaming depth. Once satisfied with the reaming depth corresponding to the preoperative template and the pinch fit between the columns, an appropriate sized acetabular cup was selected which would provide 1 mm of press-fit. This cup was introduced and manipulated until appropriate abduction and anteversion angles were obtained with careful attention to appropriate abduction and anteversion angles as evaluated by the position of the cup relative to the anterior and posterior wells of the acetabulum and the AP fluoroscopy which recreated the patient?s standing radiograph. The cup was impacted into place. Two screws were placed to provide additional fixation. Peripheral osteophytes were removed. The acetabular liner was then placed with care to ensure locking of the locking mechanism.? Attention was then turned to the femur. All retractors were removed, traction was released, a retractor was placed in the interval between the hip capsule and the gluteus minimus, and the hip was externally rotated to 90 degrees. Traction was applied through the [place] table to tension the lateral capsule and this was released using electrocautery. Traction was released and a [place] hook was placed posteriorly around the proximal femur at the level of the vastus ridge. The table height was lowered in order to restrict the tension on the anterior structures during hip hyperextension to limit the risk of femoral nerve palsy. With traction off and the hip at 90 degrees of external rotation, the hip was hyperextended and adducted while manually elevating the femur away from the acetabulum with the [place] hook to ensure it would not be caught behind the greater trochanter. An asymmetric retractor was placed over the calcar and a broad double-pronged retractor was placed over the greater trochanter. The tag stitch capturing the lateral leaflet of the capsule was moved to the medial si de, leaving the conjoined and piriformis tendons isolated in the face of the greater trochanter. The hip was externally rotated and elevated. A release of the conjoined tendon was not necessary in order to obtain adequate exposure for broaching. The canal was opened with an opening broach and a rasp was used to remove cancellous bone. A rongeur was used to remove the residual lateral bone at the base of the greater trochanter to avoid placing the stem in varus. The femur was then broached to the appropriate sized stem yielding good rotational fit and fill of the canal as well as appropriate version of the stem trial. Neck and head trials were placed, all retractors were removed and the hip was returned to neutral abduction and extension. I then reduced the hip. Initial trialing was performed with a size 11 broach, a high offset neck and a +1.5 head. I initially manually externally rotated the hip and found that it would not dislocate. I then locked the hip in 45 degrees of external rotation and dropped it to the floor with traction off which demonstrated no instability. An AP pelvis fluoroscopic image matching the preoperative standing radiograph with both lesser trochanters visible and both hips in 40 degrees of external rotation demonstrated appropriate leg length and offset. AP and lateral hip fluoroscopic images were obtained to evaluate the broach size which demonstrated grossly appropriate canal fill. The hip was dislocated and I returned to the broaching position. Based on my evaluation during initial trialing I planned to place the size 11. While testing rotational stability however I found that the broach still had some toggle within the canal. I sank it deeper, and decided to upsize to a size 12 broach. I cleared additional bone around the shoulder and t hen sank the size 12 broach down to approximately 3-4 mm below where the size 11 broach had initially sat during trialing. It had good rotational stability in that position. I repeated the calcar planing process and gain tested the rotational stability, finding it to be appropriate. I therefore placed a size 12 high offset stem, placed a high offset neck and a +5 head to accommodate for the additional sinking of the broach after up sizing to a size 12, inserted the definitive stem, and repeated the trialing process. While using a long metal bar to compensate for fluoroscopic distortion I found that leg length was appropriate. Offset appeared symmetric compared to the contralateral side. The hip was unable to be dislocated with maximum external rotation. The hip was stable with a 45 degree drop test. Canal fill was appropriate on AP and lateral fluoroscopic views and there was no evidence of any fractures.. The dual mobility head was assembled on the back table and the trunnion was cleaned and dried. I placed a ceramic head onto the trunnion and impacted it into place on the [place] taper.?? All retractors were removed and the hip was reduced. A dilute mixture of betadine and peroxide was used to bathe the soft tissues during final fluoroscopic assessment. Appropriate component positioning was confirmed on an AP pelvis radiograph with the operative and nonoperative legs in 40 degrees of external rotation, evaluating leg length and offset. There was no hip instability with maximum external rotation as well as a 45 degree drop test. The hip was copiously irrigated with pulse lavage. The capsule was closed with absorbable interrupted suture. The TFL fascia was closed with barbed suture while carefully protecting the lateral femoral cutaneous nerve from entrapment. A mixture of Ropivacaine, Epinephrine, Clonidine and Toradol was infiltrated throughout the soft tissues. The skin was closed with 2-0 and 3-0 sutures. Surgical glue was applied and a soft dressing was placed.??The sponge, instrument and needle counts were reported as being correct at the end of the case.??No obvious complications occurred. The patient was transferred from the [place] table back to a stretcher. The patient emerged from anesthesia without difficulty and was taken to the PACU in a stable condition.? Plan for aftercare: * Anterior hip precautions * Weightbearing as tolerated * Aspirin 81 twice per day for DVT prophylaxis * Anticipate discharge home today * Change into normal clothes upon arrival on the hospital floor * Mobilize in the halls as much as is logistically possible. If physical therapy is unavailable for mobilization, then patient should mobilize with nursing staff * Multimodal pain regimen with no IV opioids ordered * Apply ice machine to operative hip. Ensure that sufficient ice is in the chamber for the pad to remain cold * Follow up at [facility] in 2 weeks * Detailed postoperative instructions available at [email or web address]
--- NOTE | 2023-09-09 12:23 | PC.NURSE ---
Day shift: In room from PACU at approx 1130. A7Ox4. Dressing CDI. CMS ok. TOlertating SCD's. Denies any pain or nausea. Spouse in room for support. VS WNL. HR is 55 but baseline is 50's. HR 50's in PACU as well. EBL 500mls per CURATOR OF PHOTOGRAPHY AND [employer]INTS. Oriented to room and call light. Call light in reach. AGrees to not get OOB w/o help from staff. Will continue with post-op plan of care.
[2023-09-09] MEDS: LACTATED RINGERS 1,000 ML 100 ML IV (12:40)
[2023-09-09] MEDS: ACETAMINOPHEN 325 MG TABLET 650 MG PO ×2 (12:54→17:15)
[2023-09-09] MEDS: IBUPROFEN 600 MG TABLET PO ×2 (12:54→17:16)
--- NOTE | 2023-09-09 15:40 | PT.IIE ---
Current Diagnoses Unilateral primary osteoarthritis, left hip (09/09/23) Surgery Performed Operation Date: 09/09/23 07:45 Actual Procedures p Total Hip Arthroplasty/Anterior Approach(Left) - Bryson Spears MD Surgical History (Last Updated 08/24/23 @ 09:09 by Enid Sims, RN) History of surgery (~1983) History of vasectomy Hx of bilateral cataract extraction Hx of colonoscopy (06/01/22) Hx of fusion of cervical spine (~2018) Hx of laminectomy (~2022) Hx of left inguinal hernia repair (04/07/20) Hx of tonsillectomy Medical History (Last Updated 08/24/23 @ 09:10 by Enid Sims RN) Hearing impaired Hx of testicular cancer (~1983) Osteoarthritis Physical Therapy Inpatient Evaluation/Re-Eval M1 PT/OT-IP Prior Functional Status Start: 09/09/23 17:46 Freq: NEEDED Status: Active Protocol: Document 09/09/23 15:40 AB (Rec: 09/09/23 18:00 AB [id number]) Medical Review Prior Functional Status Medical History Reviewed Yes Communication able to make needs known Mobility and Gait pt stated that he was independent with all mobilities and ambulation without AD Social History Household Members spouse Living Arrangements House Number of Floors (Floors) One Floor Number of Stairs To Enter/Railing? pt has 2 steps B rails to enter the house Home Environment High Toilet,Walk in Shower Home Equipment Front Wheel Walker,Straight Cane Additional Social History Comment pt has an adjustable bed M2 PT-IP Current Condition Start: 09/09/23 17:46 Freq: NEEDED Status: Active Protocol: Document 09/09/23 15:40 AB (Rec: 09/09/23 18:00 AB [id number]) Physical Therapy Current Condition Current Condition Evaluation Date 09/09/23 Treatment Diagnosis s/p L DEREK anterior; difficulty in walking Onset Date 09/09/23 M3 PT-IP Subjective Start: 09/09/23 17:46 Freq: NEEDED Status: Active Protocol: Document 09/09/23 15:40 AB (Rec: 09/09/23 18:00 AB [id number]) Subjective Physical Therapy Visit Type Type Initial Evaluation Visit Start Time 15:40 Visit Stop Time 16:50 Number of DUST HANDLER Visits 0 Physical Therapy Visit Comments Patient Comments agreeable to do PT Therapy Pain Assessment Pain When Pain Assessed At Rest Pain Present Pain Present Pain Reported Location Left Hip Intensity 2 Scale Used Numeric (0 - 10) Pain Management Techniques Distraction,Modification of Treatment,Re-positioning, Timing of Activity with Medications M4 PT-IP Mobility and Gait Start: 09/09/23 17:46 Freq: NEEDED Status: Active Protocol: Document 09/09/23 15:40 AB (Rec: 09/09/23 18:00 AB [id number]) PT-Bed Mobility Assessment Supine to Sit Supine to Sit Standby Assistance Sit to Supine Sit to Supine Standby Assistance PT-Transfer Assessment Sit to and From Stand Sit to and from Stand Contact Guard Assistance,1 Person Assistance,Use of Upper Extremities Equipment Transfer Assistive Device Gait Belt,Front Wheeled Walker Orthotic/Prosthetic Devices or Brace: No Transfers Transfer Destination Chair Transfer Technique ambulated Transfer Ability Level of Assist Standby Assistance,Contact Guard Assistance,1 Person Assistance,Use of Upper Extremities Comments Mobility Comments pt supine in bed and agreeable to do PT. spouse in room with pt. obtained PLOF and home set up from pt and spouse. educated pt regarding L hip anterior precautions and WBAT LLE. post-op folder provided and reviewed contents with pt. BP in supine: 112/53. pt completed supine to sit SBA. able to sit on EOB SBA. BP in sittin/65. pt sat for 2 -3 more minutes and BP rechecked: 118/52. pt completed sit to stand CGA and ambulated in room using FWW ~ 30 ft. no c/o dizziness. Pt sat on chair. BP checked: 121/59. caregiver training conducted. spouse educated on use of safety belt and how to assist pt. spouse was able to put safety belt on pt. assisted pt with sit to stand and ambulated with pt in the hallway using FWW CGA ~ 150 ft . occasionally cues provided by PT. stair climbing training. educated pt and spouse on how to do stairs. pt completed up/ down steps using B rails CGA. spouse was able to pretty pt. assisted pt back to his room. ambulated in room using FWW SBA to CGA and sat back on chair. pt rested. completed sit to stand on chair and step transfer to bed using FWW. demonstrated sit to supine SBA and max cues for techniques. sit to stand from EOB CGA with heavy UE use. educated pt regarding sit<>stand techniques and completed CGA x 3 reps from EOB. pt transferred to chair using fWW SBA. repeated sit <>stand from chair SBA to CGA. positioned pt on the chair. BP checked: 107/49. call light and table placed within reach . cold therapy machine on pt. pt and spouse without further concerns. informed nurse regarding pt's mobility and BP . Gait Assessment Gait Gait Assistance Required: Standby Assistance,Contact Guard Assist Distance (Feet) 150 Able to Maintain Weight Bearing Status Yes During Gait Assistive Devices Assistive Device Gait Belt,Front Wheeled Walker Orthotic/Prosthetic Devices or Brace: No Gait Deviations General Gait Pattern Decreased Feet Clearance,Step- to Gait Factors Limiting Gait Function Factors Limiting Gait Function Abnormal Tonal Influences, Decreased Strength,Limited Range of Motion,Pain,Poor Balance Stair Climbing Assessment Evaluation Level of Assist On Stairs Contact Guard Assistance,1 Person Assistance Devices Stair Climbing Assistive Devices Left Railing,Right Railing Technique/Endurance Stair Climbing Direction Ascend and Descend Stair Climbing Technique Step to Step Number of Steps Climbed 3 Query Text: Stair Climbing Set # Repetitions (reps) 1 PT-Balance Assessment Sitting Balance and Reactions Static Sitting Balance Ability Normal Dynamic Sitting Balance Ability Good Standing Balance and Reactions Static Standing Balance Ability Fair Dynamic Standing Balance Ability Fair Device Used FWW M5 PT-IP Objective Assessments Start: 09/09/23 17:46 Freq: NEEDED Status: Active Protocol: Document 09/09/23 15:40 AB (Rec: 09/09/23 18:00 AB [id number]) Orientation Orientation/Cognition Level of Alertness Alert Orientation Name,Place,Situation Language Function Ability No Deficits Noted Safety Awareness Decreased Safety Awareness Memory Description No Deficits Noted Gross Range of Motion Lower Extremity ROM Assessment Within Functional Limits Strength Lower Extremity Strength Assessment Left Impaired Hip 3-/5 Knee 4/5 Coordination Assessment Gross Coordination Gross Coordination WNL Sensation Assessment Sensation Gross Sensation WNL Muscle Tone Muscle Tone WNL Yes M6 PT-IP Treatment Start: 09/09/23 17:46 Freq: NEEDED Status: Active Protocol: Document 09/09/23 15:40 AB (Rec: 09/09/23 18:00 AB [id number]) Physical Therapy Treatment Education Education Provided Precautions,Weight Bearing Status,Post-Op Packet,Safety M7 PT-IP Assessment and Plan Start: 09/09/23 17:46 Freq: NEEDED Status: Active Protocol: Document 09/09/23 15:40 AB (Rec: 09/09/23 18:00 AB [id number]) PT Summary Assessment and Plan Potential Rehabilitation Potential Good Status of Condition at Evaluation Evolving Summary Impairments Pain,ROM,Strength,Balance, Coordination,Sensation,Tone, Cognition,Bed Mobility, Transfers,Gait,Activity Tolerance Assessment Summary pt is a 68 y/o M s/p L DEREK anterior approach POD 0. pt has L hip anterior precautions and is WBAT. pt requiring SBA to CGA with mobility using FWW. caregiver training conducted and spouse is able to assist pt safely. pt may go home when medically stable. Goals Bed Mobility Goal Independent Transfer Goal Independent,Front Wheeled Walker Gait Goal Independent,Front Wheel Walker Gait Distance 300 Other Goals improve transfers and ambulation using LRAD ~ 300 ft mod I up/down 2 steps B rails mod I Days to Meet Goals 5 Frequency of Treatment Frequency Of Treatment Twice a Day Treatment Plan Physical Therapy Treatment Plan Bed Mobility Training,Transfer Training,Gait Training, Therapeutic Exercise,Balance Retraining,Post Op Education, Discharge Planning,Hot or Cold Pack,Neuromuscular Re-ed, Coordination Retraining,Manual Therapy Precautions Anterior Hip Precautions No Hip Extension,No Hip External Rotation Weight Bearing Status Weight Bearing Status Weight Bear as Tolerated Allowed Weight Bearing Amount (enter % LLE WBAT or #) (%) Recommendations To Nursing Amount of Assist Needed 1 Person Assist Discharge Recommendations PT Discharge Recommendations Home with Assistance, Outpatient PT Transportation Needs at Discharge Private Vehicle
--- NOTE | 2023-09-09 16:13 | P.PN_ITS ---
Subjective Subjective Interval history: Patient seen postoperatively. Working with physical therapy when I arrived. Has had some low-grade hypotension throughout the day today including during surgery. When I was in his room his blood pressure systolics was in the 110s. He reports his pain is well-controlled. He has intact sensory motor function distally in the foot and intact knee flexion and extension. He had a bladder scan PACU that indicated high volumes in his bladder so a Moore was temporarily placed. It has been removed. We will see how he does mobilizing with physical therapy and spontaneously voiding this afternoon. My hope is that he will continue doing well and be stable for discharge home this evening Exam Vital Signs (past 8 hours): - 09/09/23 10:05 09/09/23 10:10 09/09/23 10:25 Temperature 98.2 F Pulse Rate 59 L 58 L 51 L Respiratory Rate 16 16 16 Blood Pressure 94/77 100/60 113/65 Pulse Oximetry 98 98 98 Oxygen Delivery Method Room Air Room Air Oxygen Flow Rate 09/09/23 10:30 09/09/23 10:43 09/09/23 10:55 Temperature 97.2 F L 98.2 F Pulse Rate 52 L 54 L 53 L Respiratory Rate 16 16 16 Blood Pressure 113/52 L 100/75 108/51 L Pulse Oximetry 98 98 98 Oxygen Delivery Method Room Air Room Air Room Air Oxygen Flow Rate 09/09/23 11:30 09/09/23 12:30 Temperature 97.6 F 97.6 F Pulse Rate 54 L 71 Respiratory Rate 18 18 Blood Pressure 100/53 L 99/53 L Pulse Oximetry 99 100 Oxygen Delivery Method Oxygen Flow Rate 0 2 Oxygen Delivery Method Room Air Oxygen Flow Rate 2 [facility] Medical History (Updated 08/24/23 @ 09:10 by Enid Sims RN) Hearing impaired Osteoarthritis Hx of testicular cancer (~1983) Surgical History (Updated 08/24/23 @ 09:09 by Enid Sims RN) Hx of colonoscopy (06/01/22) Hx of tonsillectomy Hx of laminectomy (~2022) Hx of fusion of cervical spine (~2018) Hx of bilateral cataract extraction Hx of left inguinal hernia repair (04/07/20) History of vasectomy History of surgery (~1983) Family History Mother Diabetes mellitus Social History marital status: household members: spouse occupational status: employed Smoking Status: Never smoker alcohol intake: current substance use type: does not use Quality VTE Deep Vein Thrombosis/Pulmonary Embolism Present on Admission: No
[2023-09-09] MEDS: SODIUM CHLORIDE 0.9% 1,000 ML 1000 ML IV (16:45)
--- NOTE | 2023-09-09 17:10 | OT.IP.EVAL ---
Current Diagnoses Unilateral primary osteoarthritis, left hip (09/09/23) Surgery Performed Operation Date: 09/09/23 07:45 Actual Procedures p Total Hip Arthroplasty/Anterior Approach(Left) - Bryson Spears MD Past Medical History (Last Updated 08/24/23 @ 09:10 by Enid Sims, RN) Hearing impaired Hx of testicular cancer (~1983) Osteoarthritis Surgical History (Last Updated 08/24/23 @ 09:09 by Enid Sims RN) History of surgery (~1983) History of vasectomy Hx of bilateral cataract extraction Hx of colonoscopy (06/01/22) Hx of fusion of cervical spine (~2018) Hx of laminectomy (~2022) Hx of left inguinal hernia repair (04/07/20) Hx of tonsillectomy Occupational Therapy Inpatient Evaluation/Re-Eval M2 OT-IP Current Condition Start: 09/09/23 17:36 Freq: Status: Active Protocol: Document 09/09/23 17:36 [facility] (Rec: 09/09/23 17:52 [facility] [id number]) Occupational Therapy Current Condition Current Condition Evaluation Date 09/09/23 Treatment Diagnosis S/P L DEREK anterior precautions Diagnosis Onset Date 09/09/23 Post Operative Precautions Anterior Hip Precautions No Hip Extension,No Hip External Rotation M3 OT- IP Subjective and Pain Start: 09/09/23 17:36 Freq: Status: Active Protocol: Document 09/09/23 17:36 [facility] (Rec: 09/09/23 17:52 [facility] [id number]) OT- Subjective Occupational Therapy Visit Type Type Initial Evaluation Visit Start Time 16:45 Visit Stop Time 17:10 Occupational Therapy Visit Comments Patient Comments Pt agreed to work with OT and wanted to try to use the toilet. Pt's present in the room. Patient/Caregiver Goals To go home. OT Pain Assessment Pain When Pain Assessed During Mobility Pain Present Pain Present Pain Reported M4 OT- IP ADL's Start: 09/09/23 17:36 Freq: Status: Active Protocol: Document 09/09/23 17:36 [facility] (Rec: 09/09/23 17:52 [facility] [id number]) OT [id number] Comments OT Self-Feeding Comments NO issues anticipiated. OT ADL-Grooming Comments OT Grooming Comments NO issues anticipated. OT ADL-Oral Care Comments Oral Care Comments NO issues anticipated. OT ADL-Dressing Comments OT Dressing Comments Pt has a sock aid to use at home. Pt states usually sit on the edge of the tub to put his sock up. Suggested best to sit on the toilet for safety. Also educated to gin his LLE first and take out last. OT ADL-Toileting Comments OT Toileting Comments Pt able to use the FWW to stand over the toilet to try to urinate. Suggested to take the urinal home to use at night if needed. Also educated pt to be mindful of his LLE positoning needs during ADLs. OT ADL-Bathing Comments OT Bathing Comments Educated on care for the dressing during showering needs. M5 OT- IP IADL's Start: 09/09/23 17:36 Freq: Status: Active Protocol: Document 09/09/23 17:36 [facility] (Rec: 09/09/23 17:52 [facility] [id number]) OT-Instrumental Activities of Daily Living Deficits IADL Deficits Identified Deficits Home Safety Awareness Awareness of Need for Assistance at Home Good Awareness Ability to Problem Solve Emergency Able to Problem Solve Situations Home Safety Comments Pt's to provide assist and supervision as needed. Money Management Money Management Caregiver Provides Assistance Meal Preparation Meal Preparation Caregiver Provides Assist Tea Plantation Worker Tea Plantation Worker Caregiver Provides Assist M6 OT- IP Functional Cognition Start: 09/09/23 17:36 Freq: Status: Active Protocol: Document 09/09/23 17:36 [facility] (Rec: 09/09/23 17:52 [facility] [id number]) Cognitive Factors Limiting Selfcare Function Cognitive Ability Level of Alertness Alert Patient Orientation Name,Age,Birthday,Month,Date, Year,Day of Week,Place, Situation Attention Span Ability Capable of Focused Attention, Capable of Sustained Attention Ability to Follow Commands Able to Follow Multi-Step Commands Safety Awareness No Deficits Noted Cognitive Comments Cognitive Assessment Comments Pt able to show good safety to be able to follow hip anterior precautions during ADL and mobility needs. OT- Vision and Hearing OT- Hearing Assessment OT- Hearing Assessment WFL OT- Vision Assessment Visual Acuity Glasses For Reading Visual Attentiveness WFL Occular Pursuits WFL M7 OT- IP Mobility and Balance Start: 09/09/23 17:36 Freq: Status: Active Protocol: Document 09/09/23 17:36 [facility] (Rec: 09/09/23 17:52 [facility] [id number]) OT-Transfer Assessment Sit to and From Stand Sit to and from Stand Standby Assistance,Contact Guard Assistance Transfers Transfer Ability Standby Assistance,Contact Guard Assistance Technique Transfer Destination Chair,Toilet Transfer Technique Stand Step Pivot Devices Transfer Assistive Devices Gait Belt,Front Wheeled Walker Comments Mobility Comments CGA to SBA with FWW in the room and his able to assist the pt. OT- Balance Assessment Sitting Balance and Reactions Static Sitting Balance Ability Normal Dynamic Sitting Balance Ability Good Standing Balance and Reactions Static Standing Balance Ability Good Dynamic Standing Balance Ability Good M8 OT- IP Objective Assessments Start: 09/09/23 17:36 Freq: Status: Active Protocol: Document 09/09/23 17:36 [facility] (Rec: 09/09/23 17:52 [facility] [id number]) OT Gross Range of Motion Upper Extremity Range of Motion Assessment Within Functional Limits OT Strength Upper Extremity Strength Assessment Within Functional Limits M9 OT- IP Assessment and Plan Start: 09/09/23 17:36 Freq: Status: Active Protocol: Document 09/09/23 17:36 [facility] (Rec: 09/09/23 17:52 [facility] [id number]) OT Summary Assessment and Plan Potential Rehabilitation Potential Excellent Analytic Complexity at Evaluation Low Summary OT Impairments Pain,Functional Mobility, Dressing,Toileting,Bathing, Toilet Transfers,Shower Transfers Progress Towards Goals Progressing Toward Goals Assessment Summary Pt low complexity and main barriers are pain and having difficulty to urinate at this time. Pt 's has completely caregiver training for all ADl and mobility needs with good safety. Pt to go home with assist when medically stable. Goals Dressing Goal Independent,Sock Aid Toileting Goal Independent Bathing Goal Standby Assistance Toilet Transfer Goal Independent Shower Transfer Goal Standby Assistance Days to Meet Goals 2 Frequency of Treatment Frequency Of Treatment Once a Day Treatment Plan OT Treatment Plan ADL Training,Functional Mobility,Patient/Family Education,Discharge Planning Discharge Recommendations OT Discharge Recommendations Home with Assistance, Outpatient PT Transportation Needs at Discharge Private Vehicle
--- NOTE | 2023-09-09 19:12 | PC.NURSE ---
Day shift: Paperwork signed and all questions answered. Pt said I'm so happy to go home today. Cleared by PT/OT. VS WNL. Pt voided post-ritter. Dressing remains CDI. CMS intact with PPP. Left unit at approx 1655 via WC. Spouse is driving him home. Has all personal belongings. No new MD scripts.
== END 2023-09-09 19:14 | disposition home or self-care (01) ==
LOC: OR 06:02 → AC 10:27
PROVIDERS: Family Provider Physician Assistant; PCP Physician Assistant; Referring Provider Orthopaedic Surgery Adult Reconstructive Orthopaedic Surgery; Visit Provider Orthopaedic Surgery Adult Reconstructive Orthopaedic Surgery
PROC: (CPT 27130; principal; 2023-09-09 07:45)
DX: M16.12 Unilateral primary osteoarthritis, left hip (principal)
CPT/HCPCS: 27130; 73502; 76000; 97162; 97165; 97530; 97535; C1776; J0690; J1100; J2250; J2405; J2704; J3010

== ENCOUNTER → 2024-03-20 09:40 | Outpatient (CLI) | payer MEDICARE, SELFPAY ==
[2023-11-30 13:48] VITALS: BMI 25.1
[2024-03-20 11:13] LABS: HEMOLYSIS < 15 (0-50)
[2024-03-20 11:14] LABS: Alanine Aminotransferase 22 IU/L (<50); Albumin 3.9 g/dL (3.5-5.0); Albumin Globulin Ratio 1.7 (1.0-2.8); Alkaline Phosphatase 64 U/L (38-126); Aspartate Aminotransferase 30 IU/L (17-59); BUN Creatinine Ratio 21.9 (6-22); Bilirubin Total 0.5 mg/dL (0.2-1.3); Blood Urea Nitrogen 21 mg/dL (9-20); Calcium 9.2 mg/dL (8.4-10.2); Carbon Dioxide 28 mmol/L (22-32); Chloride 108 mmol/L (98-107); Cholesterol 177 mg/dL (140-199); Estimated Glomerular Filt Rate > 60 mL/min (>60); Globulin 2.3 g/dL (1.7-4.1); Glucose 100 mg/dL (80-110); HDL Cholesterol 52 mg/dL (40-60); LDL Cholesterol Calculated 112 mg/dL (<100); Sodium 138 mmol/L (137-145); Total Protein 6.2 g/dL (6.3-8.2); Triglycerides 65 mg/dL (35-150)
[2024-03-20 11:18] LABS: Potassium 5.1 mmol/L (3.4-5.1)
[2024-03-20 11:42] LABS: Prostate Specific Antigen Scrn 1.44 ng/mL (0.1-4.0)
== END ==
PROVIDERS: Family Provider Physician Assistant; PCP Family Medicine; Referring Provider Family Medicine; Visit Provider Family Medicine
DX: Z12.5 Encounter for screening for malignant neoplasm of prostate (principal); Z00.00 Encounter for general adult medical examination without abnormal findings; N40.0 Benign prostatic hyperplasia without lower urinary tract symptoms
CPT/HCPCS: 36415; 80053; 80061; G0103

== ENCOUNTER → 2024-04-16 10:46 | Outpatient (CLI) | payer MEDICARE, SELFPAY ==
[2023-11-30 13:48] VITALS: BMI 25.1
--- NOTE | 2024-04-16 10:47 | DI.RAD.S_ITS ---
PROCEDURE: XR LUMBAR SPINE 2-3V INDICATIONS: low back pain TECHNIQUE: 3 views of the lumbar spine were acquired. COMPARISON: [facility], , XR LUMBAR SPINE 2-3V, 10/27/2017, 16:26. FINDINGS: Rudimentary ribs are present at T12. Five non rib-bearing lumbar vertebrae are present. There is moderate levocurvature of the lumbar spine with the apex at L4. Otherwise, the lumbar lordosis is preserved. The vertebral body heights are preserved. Multilevel intervertebral disc height loss multilevel hypertrophy of the spinous processes and moderate-severe facet arthropathy, most conspicuous at L3-L4 and L4-L5. Partially identified left hip total arthroplasty. Aortic vascular calcifications. IMPRESSION: Multilevel lumbar osteoarthrosis, with mildly increased levocurvature, without acute radiographic abnormality. Dictated by: Gary Bobby M.D. on 04/16/2024 at 15:34 Approved by: Gary Bobby M.D. on 04/16/2024 at 15:36
== END ==
LOC: RAD 10:47
PROVIDERS: Family Provider Physician Assistant; PCP Family Medicine; Referring Provider Family Medicine; Visit Provider Family Medicine
DX: M47.816 Spondylosis without myelopathy or radiculopathy, lumbar region (principal); M54.50 Low back pain, unspecified; G89.29 Other chronic pain; Z96.642 Presence of left artificial hip joint
CPT/HCPCS: 72100

== ENCOUNTER → 2024-06-20 08:23 | Outpatient (CLI) | payer MEDICARE, SELFPAY ==
[2023-11-30 13:48] VITALS: BMI 25.1
== END ==
PROVIDERS: Family Provider Physician Assistant; PCP Family Medicine; Visit Provider Urology
DX: N40.1 Benign prostatic hyperplasia with lower urinary tract symptoms (principal); Z85.47 Personal history of malignant neoplasm of testis
CPT/HCPCS: 87086

== ENCOUNTER 2024-06-25 07:43 | Day surgery (SDC) | payer MEDICARE, SELFPAY ==
[2023-11-30 13:48] VITALS: BMI 25.1
[2024-06-11 07:52] VITALS: BMI 25.9
[2024-06-25] VITALS (9 sets, daily range): BP systolic 133–158; BP diastolic 70–83; PULSE 51–61; RESP 12–18; TEMP 36.1–36.6; O2SAT 98–100; BMI 25.5
--- NOTE | 2024-06-25 | PATH_ITS ---
[facility] Accession Number: [id number] No. of containers..02 Tissue . 01 Material submitted: . PART A: prostate - PROSTATE CHIPS PART B: urethra - URETHRAL MASS . 01 Diagnosis: A. 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 . B. URETHRAL MASS: Fibroepithelial urethral polyp. [facility] 07/02/2024 1533 Local . 01 Comment: Part B: This part was also reviewed by Dr. Benny Mitchell (Julie), who who agrees with the interpretation. . Dr. Yumiko Mcwilliams left a voice message on the clinic message line for Dr. Francisco Javier Olvera regarding results on 07-02-24 at approximately 3:35 p.m. . 01 Electronically signed: . Yumiko Mcwilliams MD, Pathologist NPI- [id number] . 01 Gross description: . A. Received in formalin with two identifiers and prostate chips, are multiple avendano soft tissue fragments admixed with a small amount of hemorrhagic material weighing 2 grams and aggregating to 4.2 x 3.5 x 0.9 cm. Submitted entirely in cassettes A1-A3. B. Received in formalin with two identifiers and urethral mass biopsy, is a single avendano soft tissue fragment 0.4 x 0.3 x 0.1 cm. Submitted intact in cassette B1. ([id number]) /JUSTIN 06/26/2024 0914 Local . 01 Microscopic: . An immunohistochemical stain for HMWCK+p63 performed to evaluate for block reactivity. The control stained with appropriate reactivity. . RESULTS: Blocks A1 and A3 HMWCK+p63: Absent in region of interest (A1 and A3). AMACR: Positive in region of interest. . The absence of HMWCK+p63 and the presence of strong AMACR staining in the regions of interest suport an interpretation of prostatic adenocarcinoma at these foci. . . * This test was developed and the performance characteristics were validated by [facility]. It has not been cleared or approved by the U.S. Food and Drug Administration. . 01 Pathologist provided ICD-10: N40.1, C61 . 01 CPT . 401643, 332891, [id number] Specimen Comment: A courtesy copy of this report has been sent to [facility] Performed at: [address] [address], [place], [place] [id number] MD Xavier Hitchcock MD Phone: [phone]
[2024-06-25] MEDS: ACETAMINOPHEN 325 MG TABLET 975 MG PO (08:23)
[2024-06-25] MEDS: LACTATED RINGERS 1,000 ML 42 ML IV ×2 (08:44→11:29)
--- NOTE | 2024-06-25 09:22 | PM.PREOP ---
Pre-operative Note COVID-19 COVID-19 status: Not tested Interval Note History & Physical reviewed/Exam performed by Physician: Yes Changes to H&P: No
[2024-06-25] MEDS: levoFLOXacin 500 MG/100 ML PIGGYBACK 100 MG IV (09:55)
--- NOTE | 2024-06-25 10:10 | SUR.OPER ---
Lithotomy on padded OR bed, head on pillow, arms secured on padded arm boards at <90 degrees abduction. Legs secured in padded yellow fins stirrups.
--- NOTE | 2024-06-25 11:25 | P.OP_ITS ---
Procedure & Clinicians Procedure: Cystoscopy Urethral biopsy Aquablation Same procedure as scheduled: No (Noted to have a urethral mass that required biopsy) Indications: 69 y/o M noted to have symptoms consistent w/ BPH and LUTS that were unresponsive to medical therapy and strongly desired surgical management via an Aquablation procedure. 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 Closure Type: not applicable Specimen(s): other (urethral mass, prostate chips) Applied: catheter Estimated Blood Loss (mL): 50 Blood products transfused: none Procedure in detail: After informed consent was obtained, the patient was identified brought to the operating room where he was placed in his supine position on the table.? Once there anesthesia was induced and maintained.? Ensuring an adequate level of anesthesia the patient was transitioned to the lithotomy position where after time-out he was prepped.? After prepping, ensuring an adequate level of anest hesia, administration IV antibiotics and time-out 60 cc of ultrasound gel was instilled within the rectum and the ultrasound probe which had been attached to the TRUS stepper which was attached to the TRUS stepper articulating arm which was secured to the bed was advanced into the rectum under direct vision via the ultrasound.? The ultrasound probe was then aligned and confirmation made that the prostate was centered and aligned in both the sagittal and transverse views.? The bladder neck, verumontanum, central and transitional zones were identified.? With the ultrasound in place and adjusted the patient was then draped in a sterile fashion. With the patient draped the 24 Hebrew aqua beam handpiece was then inserted through the urethra and advanced into the bladder.? Unfortunately, he was noted to have a 0.5cm papillary urethral mass in his bulbar urethra at the 7 o'clock position. Therefore, the aqua beam handpiece was removed and the 22Fr cystoscope was inserted into the urethra and advanced to the level of the aforementioned mass. This was then biopsied via the cold cup method and submitted for pathology. The cystoscope was then advanced into the bladder and complete cystoscopy was then performed and no concerning bladder mass or lesions were noted.? Bilateral ureteral orifices were noted to be orthotopic in nature.? As the cystoscope was advanced the level of the sphincter, verumontanum, bladder neck were all identified via ultrasound and under direct vision.? The cystoscope was then removed and the aqua beam hand place was then secured to the handpiece articulating arm which had been secured to the bed.? The Aquablation handpiece and TRUS probe were confirmed to be parallel and colinear.? Confirmation was then made that the aqua beam handpiece and nozzle was centered and anterior to the bladder neck.? The cystoscope was then retracted under direct vision in the sphincter and verumontanum were identified.? The tip of the cystoscope was then placed proximal to the external sphincter.? Compression was applied with the TRUS probe to the prostate.? The alignment of the TRUS probe and aqua beam handpiece was once again confirmed.? Horizontal alignment of the handpiece water jet was then performed.? With these adjustments made, the treatment zones were then planned using real-time ultrasound.? In the largest transverse view of the prostate the depth and radial angles were determined and set again in the transverse view of the prostate.? In the longitudinal and sagittal view the Aquablation nozzle was identified and its position registered with the software and robot.? The treatment contours were then determined and adjusted to reflect the intended margins of resection.? Following our plan confirmation, the Aquablation resection treatment was started.? A 2nd pass was then completed in similar fashion after the 1st pass had been completed.? At this point, the Aqua hand piece was removed from the urethra. The 26Fr resectoscope was then inserted into the urethra and cystoscopy was repeated.? The [facility] post anesthesia care unit nurse was utilized to evacuate the blood clots from the bladder.? The bladder neck was then resected using the bipolar Gyrus loop.? Bilateral ureteral orifices were again identified and noted to be intact at case end.? Hemostasis was obtained and noted to be excellent at case end.? The resectoscope was then removed and a 22Fr Zane 3-way hematuria catheter was inserted through the urethra and into the bladder.? 45cc of sterile water was utilized for balloon insufflation.? Efflux was noted to be clear at case end.? Anesthesia was reversed, he was extubated in the OR and transferred to the PACU in stable condition for recovery. Complications: none Post-operative Condition: stable Disposition: PACU Plan for aftercare: Will continue to run CBI for a few hours to evaluate the efflux from his catheter.? Should it remain relatively clear and with minimal blood clots, will discharge home with catheter in place and have him return to Urology clinic in 2 days for a voiding trial.? Should his efflux remain red or have significant clot burden, will admit overnight for observation and continued CBI.
== END 2024-06-25 13:45 | disposition home or self-care (01) ==
PROVIDERS: Family Provider Physician Assistant; PCP Family Medicine; Referring Provider Urology; Visit Provider Urology
PROC: 0VT08ZZ Resection of Prostate, Via Natural or Artificial Opening Endoscopic (ICD-10-PCS; CPT 0421T; principal; 2024-06-25 09:45)
DX: C61 Malignant neoplasm of prostate (principal); N40.1 Benign prostatic hyperplasia with lower urinary tract symptoms; N36.8 Other specified disorders of urethra; R33.9 Retention of urine, unspecified; R39.12 Poor urinary stream; R35.0 Frequency of micturition; R35.1 Nocturia; Z85.47 Personal history of malignant neoplasm of testis
CPT/HCPCS: 0421T; 52204; C2596; J1100; J1956; J2405; J2704; J3010

== ENCOUNTER → 2024-06-27 14:31 | Outpatient (CLI) | payer MEDICARE, SELFPAY ==
[2023-11-30 13:48] VITALS: BMI 25.1
== END ==
PROVIDERS: Family Provider Physician Assistant; PCP Family Medicine; Visit Provider Urology
DX: N40.1 Benign prostatic hyperplasia with lower urinary tract symptoms (principal); Z12.5 Encounter for screening for malignant neoplasm of prostate; N36.8 Other specified disorders of urethra
CPT/HCPCS: 51798; 81002; 87086; 99213

== ENCOUNTER → 2024-07-02 16:57 | Outpatient (CLI) | payer MEDICARE, SELFPAY ==
[2023-11-30 13:48] VITALS: BMI 25.1
== END ==
PROVIDERS: Family Provider Physician Assistant; PCP Family Medicine; Visit Provider Urology
DX: R39.9 Unspecified symptoms and signs involving the genitourinary system (principal)
CPT/HCPCS: 87086

== ENCOUNTER → 2024-07-06 15:13 | Outpatient (CLI) | payer MEDICARE, SELFPAY ==
[2023-11-30 13:48] VITALS: BMI 25.1
== END ==
PROVIDERS: Family Provider Physician Assistant; PCP Family Medicine; Visit Provider Urology
DX: R39.9 Unspecified symptoms and signs involving the genitourinary system (principal)
CPT/HCPCS: 87077; 87086; 87186